=== PATIENT | male | born 1950 | race African-American/Black ===

== ENCOUNTER 2020-07-09 15:35 | Observation (INO) ==
[2020-07-09 15:56] LABS: Basophils % 0.3 % (0.0-0.8); Eosinophils % 0.3 % (0.00-10.9); Hematocrit 30.6 VOL% (42.0-52.0); Hemoglobin 10.1 GM/DL (14.0-18.0); Immature Granulocytes % 0.8 %; Immature Granulocytes Absolute 0.05 #; Lymphocytes # 0.5 10*3/uL (1.4-4.0); Lymphocytes % 8.3 % (21.2-54.2); Mean Corpuscular Volume 93.3 FL (87-102); Mean Platelet Volume 8.9 FL (9.6-12.0); Monocytes % 4.3 % (1.7-12.7); Platelet Count 234 T/CUMM (130-400); Red Blood Count 3.28 MC/CUMM (3.8-5.5); White Blood Count 6.5 T/CUMM (4-12)
[2020-07-09 16:21] LABS: Albumin 2.9 G/DL (3.4-5.0); Calcium 8.2 MG/DL (8.5-10.1); Osmolality,Calculated 293.1 MOS/KG (273-304); Total Protein 7.1 G/DL (6.4-8.3)
[2020-07-09 16:22] LABS: INR 1.1; Partial Thromboplastin Time 26.2 SECS (23.9-33.8)
[2020-07-09] MEDS ORDERED: hydrALAZINE 20 MG/1 ML VIAL ONE (17:30)
[2020-07-09] MEDS ORDERED: hydrALAZINE 20 MG/1 ML VIAL IV STA (17:36)
[2020-07-09] MEDS ORDERED: GLUCAGON 1 MG VIAL IM PRN (18:08)
[2020-07-09] MEDS ORDERED: DEXTROSE 50% 25 GM/50 ML VIAL IV PRN (18:08)
[2020-07-09] MEDS ORDERED: FUROSEMIDE 40 MG/4 ML VIAL IV STA (19:07)
[2020-07-09] MEDS ORDERED: FUROSEMIDE 40 MG/4 ML VIAL ONE (19:17)
[2020-07-09] MEDS: allopurinoL 100 MG TABLET PO SCH (20:50)
[2020-07-09] MEDS: ENOXAPARIN 30 MG/0.3 ML SYRINGE SUBCUT SCH (20:51)
[2020-07-09] MEDS: INSULIN LISPRO 100 UNIT/ML SUBCUT SCH (20:51)
[2020-07-09] MEDS: ROSUVASTATIN 20 MG TABLET PO SCH (20:51)
[2020-07-10 01:12] LABS: Basophils % 0.5 % (0.0-0.8); Eosinophils % 0.4 % (0.00-10.9); Hematocrit 30.9 VOL% (42.0-52.0); Hemoglobin 9.9 GM/DL (14.0-18.0); Immature Granulocytes % 0.5 %; Immature Granulocytes Absolute 0.03 #; Lymphocytes # 0.7 10*3/uL (1.4-4.0); Lymphocytes % 12.3 % (21.2-54.2); Mean Corpuscular Volume 96.3 FL (87-102); Mean Platelet Volume 9.2 FL (9.6-12.0); Monocytes % 7.4 % (1.7-12.7); Neutrophils % 78.9 % (38.7-73.9); Platelet Count 225 T/CUMM (130-400); Red Blood Count 3.21 MC/CUMM (3.8-5.5); Red Cell Distribution Width 14.2 % (9.3-17.3); White Blood Count 5.6 T/CUMM (4-12)
[2020-07-10 01:29] LABS: Calcium 8.3 MG/DL (8.5-10.1); Osmolality,Calculated 291.1 MOS/KG (273-304); Risk Ratio 2.84; Thyroid Stimulating Hormone 3.49 uIU/ml (0.358-3.74); VLDL CHOLESTEROL 15.4 MG/DL
[2020-07-10] MEDS: INSULIN LISPRO 100 UNIT/ML SUBCUT SCH ×4 (07:31→20:18)
[2020-07-10] MEDS: ESCITALOPRAM 10 MG TABLET PO SCH (08:51)
[2020-07-10] MEDS: CLOPIDOGREL 75 MG TABLET PO SCH (08:51)
[2020-07-10] MEDS: allopurinoL 100 MG TABLET PO SCH ×2 (08:51→20:17)
[2020-07-10] MEDS: amLODIPine 10 MG TABLET PO SCH (08:51)
[2020-07-10] MEDS: TAMSULOSIN 0.4 MG CAPSULE PO SCH (08:51)
[2020-07-10] MEDS ORDERED: FUROSEMIDE 40 MG/4 ML VIAL IV ONE (09:37)
[2020-07-10 17:00] LABS: ABG Base Excess -0.6 MMOL/L (-2.5-2.5); ABG HCO3 23.9 MMOL/L (20-26); ABG Oxygen Saturation 99.4 % (95-100); ABG PCO2 38.9 MM HG (35-48); ABG PH 7.399 (7.35-7.45); ABG TCO2 22.3 MMOL/L (23-27)
[2020-07-10 17:01] LABS: Allen Test Positive
[2020-07-10] MEDS: FUROSEMIDE 40 MG/4 ML VIAL IV SCH (17:36)
[2020-07-10] MEDS: ENOXAPARIN 30 MG/0.3 ML SYRINGE SUBCUT SCH (20:17)
[2020-07-10] MEDS: ROSUVASTATIN 20 MG TABLET PO SCH (20:17)
[2020-07-11 06:38] LABS: Basophils % 0.8 % (0.0-0.8); Eosinophils # 0.1 10*3/uL (0.0-0.87); Eosinophils % 1.7 % (0.00-10.9); Hematocrit 25.7 VOL% (42.0-52.0); Hemoglobin 8.3 GM/DL (14.0-18.0); Immature Granulocytes % 0.6 %; Immature Granulocytes Absolute 0.02 #; Lymphocytes # 0.6 10*3/uL (1.4-4.0); Lymphocytes % 17.5 % (21.2-54.2); Mean Corpuscular HGB Conc 32.3 GM/DL (32-36); Mean Corpuscular Volume 95.9 FL (87-102); Mean Platelet Volume 9.8 FL (9.6-12.0); Monocytes % 13.2 % (1.7-12.7); Neutrophils % 66.2 % (38.7-73.9); Platelet Count 196 T/CUMM (130-400); Red Blood Count 2.68 MC/CUMM (3.8-5.5); Red Cell Distribution Width 13.8 % (9.3-17.3); White Blood Count 3.6 T/CUMM (4-12)
[2020-07-11 06:51] LABS: Calcium 7.9 MG/DL (8.5-10.1); Osmolality,Calculated 286.4 MOS/KG (273-304)
[2020-07-11] MEDS: INSULIN LISPRO 100 UNIT/ML SUBCUT SCH ×4 (07:57→21:38)
[2020-07-11] MEDS: ESCITALOPRAM 10 MG TABLET PO SCH (08:37)
[2020-07-11] MEDS: CLOPIDOGREL 75 MG TABLET PO SCH (08:37)
[2020-07-11] MEDS: TAMSULOSIN 0.4 MG CAPSULE PO SCH (08:37)
[2020-07-11] MEDS: allopurinoL 100 MG TABLET PO SCH ×2 (08:38→20:00)
[2020-07-11] MEDS: amLODIPine 10 MG TABLET PO SCH (08:38)
[2020-07-11] MEDS: FUROSEMIDE 40 MG/4 ML VIAL IV SCH ×2 (08:38→15:49)
[2020-07-11] MEDS: metOLazone 2.5 MG TABLET PO SCH (12:31)
[2020-07-11] MEDS: ENOXAPARIN 30 MG/0.3 ML SYRINGE SUBCUT SCH (20:00)
[2020-07-11] MEDS: ROSUVASTATIN 20 MG TABLET PO SCH (20:00)
[2020-07-12] MEDS: INSULIN LISPRO 100 UNIT/ML SUBCUT SCH ×2 (08:20→11:18)
[2020-07-12] MEDS: TAMSULOSIN 0.4 MG CAPSULE PO SCH (08:28)
[2020-07-12] MEDS: amLODIPine 10 MG TABLET PO SCH (08:28)
[2020-07-12] MEDS: metOLazone 2.5 MG TABLET PO SCH (08:28)
[2020-07-12] MEDS: allopurinoL 100 MG TABLET PO SCH (08:28)
[2020-07-12] MEDS: CLOPIDOGREL 75 MG TABLET PO SCH (08:28)
[2020-07-12] MEDS: ESCITALOPRAM 10 MG TABLET PO SCH (08:28)
[2020-07-12] MEDS: FUROSEMIDE 40 MG/4 ML VIAL IV SCH (08:30)
[2020-07-12 12:23] VITALS: BP 152/76
[2020-07-12] MEDS ORDERED: FUROSEMIDE 40 MG/4 ML VIAL IV SCH (15:00)
== END 2020-07-12 15:58 | disposition home health service (06) ==
LOC: N.ED 15:35 → N.EDINP 15:35 → SUATTDRO 18:08 → N.TELES 19:49
PROVIDERS: ADMIT Internal Medicine; ATTEND Internal Medicine